=== PATIENT | male | born 1965 | race Two or more races ===

== ENCOUNTER 2016-09-05 07:19 | Day surgery (SDC) | payer OTHER ==
[2016-09-05] MEDS ORDERED: PROPOFOL INJ 200 MG/20 ML VIAL IV ONE (07:27)
[2016-09-05 09:24] VITALS: BP 99/74
--- NOTE | 2016-09-05 13:37 | Operative Report ---
Operative Report DATE OF SURGERY: 09/05/16 Operative Report: The risks, benefits and alternatives of the procedure are explained to the patient in detail and informed consent is obtained patient is taken back to the endoscopy suite and placed in left lateral decubital and time out is called Propofol sedation is provided A rectal exam is done which did not reveal any masses, tears of fissures An Olympus videoscope is inserted and guided all the way to the cecum the cecum is identified by the usual anatomical landmarks of the ileocecal valve and appendiceal orifice, the prep is good, photodocumentation is provide the scope is then sequentially pulled back via the various segments of colon including the ascending colon, transverse colon, descending colon, sigmoid and rectum Retroflexion is done PREOPERATIVE DIAGNOSIS: colorectal cancer screening POSTOPERATIVE DIAGNOSIS: 1. mild left sided punctate areas of inflammation that is consistent with previous NSAID use. 2. Sessile descending colon polyp, ablated in situ, attempted snare polypectomy. 3.diverticulosis. 4.Internal hemorrhoids OPERATION: Colonoscopy with snare polypectomy. colonoscopy with biopsy SURGEON: TACHO NGUYEN ANESTHESIA: LMAC TISSUE REMOVED OR ALTERED: biopsy specimen obtained COMPLICATIONS: none ESTIMATED BLOOD LOSS: none INTRAOPERATIVE FINDINGS: no masses, polyps or AVM's are noted. no obstruction masses are noted. PROCEDURE: patient tolerated his procedure well no post procedure complications patient is discharged in good condition discharge diet: regular discharge date: 09/05/16 discharge activity: regular 5 year surveillance colonoscopy will wait on biopsy patient has a 2-3 week follow up patient to call if there are any other questions or concerns. he may go to the ED if needed
== END 2016-09-05 09:19 | disposition home or self-care (01) ==
LOC: END 07:19
PROVIDERS: ATTEND Internal Medicine Gastroenterology
PROC: 3E0H8GC Introduction of Other Therapeutic Substance into Lower GI, Via Natural or Artificial Opening Endoscopic (ICD-10-PCS; principal; 2016-09-05 08:30)
PROC: 0DBN8ZX Excision of Sigmoid Colon, Via Natural or Artificial Opening Endoscopic, Diagnostic (ICD-10-PCS; 2016-09-05 08:30)
PROC: 0DBM8ZX Excision of Descending Colon, Via Natural or Artificial Opening Endoscopic, Diagnostic (ICD-10-PCS; 2016-09-05 08:30)
DX: Z12.11 Encounter for screening for malignant neoplasm of colon (principal); D12.4 Benign neoplasm of descending colon; K52.9 Noninfective gastroenteritis and colitis, unspecified; K57.30 Diverticulosis of large intestine without perforation or abscess without bleeding; K64.8 Other hemorrhoids; G47.30 Sleep apnea, unspecified; Z79.899 Other long term (current) drug therapy; Z87.442 Personal history of urinary calculi
CPT/HCPCS: 45380; 45385; 45381; 88305 ×2; J2704; 810

== ENCOUNTER 2018-03-22 05:23 | Day surgery (SDC) | payer OTHER ==
[2018-03-15 09:27] LABS: HEMATOCRIT 44.4 % (37.9-51.0); HEMOGLOBIN 15.4 g/dL (13.5-17.0); MEAN CORPUSCULAR HGB CONC 34.7 g/dL (32.0-36.0); MEAN CORPUSCULAR VOLUME 89 fl (80-97); PLATELET COUNT 389 10^3/uL (150-450); RED BLOOD COUNT 4.98 10^6/uL (4.35-5.55); RED CELL DISTRIBUTION WIDTH 13.2 % (11.5-14.0); WHITE BLOOD COUNT 8.2 10^3/uL (4.0-10.5)
[~2018-03-22 05:23] MED LIST: ACETAMINOPHEN 325 MG TABLET PO PRN; CEFAZOLIN 2 GM/D5W RTU 2 GM/50 ML RTUPB IV PRN; LACTATED RINGERS 1000 ML IV PRN; LIDOCAINE 0.5% INJ-PF (5 MG/ML) 50 ML SDV SUBCUT PRN
[2018-03-22] MEDS ORDERED: CEFAZOLIN 2 GM/D5W RTU 2 GM/50 ML RTUPB IV ONE (05:46)
[2018-03-22] MEDS ORDERED: BUPIVACAINE HCL 0.25 % INJ/PF (2.5 MG/1 ML) 30 ML VIAL ONE (06:39)
[2018-03-22] MEDS ORDERED: FENTANYL CITRATE INJ/PF 100 MCG/2 ML AMPUL ONE ×2 (06:44→07:22)
[2018-03-22] MEDS ORDERED: HYDROMORPHONE HCL INJ/PF 2 MG/ML AMPULE ONE (06:44)
[2018-03-22] MEDS ORDERED: MIDAZOLAM 2 MG/2 ML INJ ONE (06:45)
[2018-03-22] MEDS ORDERED: ACETAMINOPHEN 1,000 MG/100 ML RTUPB IV ONE (06:45)
[2018-03-22] MEDS ORDERED: PROPOFOL INJ 200 MG/20 ML VIAL IV ONE (06:45)
[2018-03-22] MEDS ORDERED: DEXMEDETOMIDINE INJ 80 MCG/20 ML VIAL IV ONE (07:20)
[2018-03-22] MEDS ORDERED: MEPERIDINE HCL/PF INJ 25 MG/1 ML DISP.SYRIN IV PRN (08:33)
[2018-03-22] MEDS ORDERED: PROMETHAZINE HCL INJ 25 MG/1 ML VIAL IV PRN (08:33)
[2018-03-22] MEDS ORDERED: DIPHENHYDRAMINE HCL 50 MG/ML VIAL IV PRN (08:33)
[2018-03-22] MEDS ORDERED: FENTANYL CITRATE INJ/PF 100 MCG/2 ML AMPUL IV PRN ×2 (08:33)
[2018-03-22] MEDS ORDERED: SUGAMMADEX SODIUM 200 MG/2 ML SDV IV ONE (08:39)
[2018-03-22] MEDS: KETOROLAC TROMETHAMINE INJ/PF 30 MG/1 ML SDV ONE ×2 (10:50→10:55)
[2018-03-22] MEDS: FENTANYL CITRATE INJ/PF 100 MCG/2 ML AMPUL ONE ×2 (10:52→11:00)
--- NOTE | 2018-03-22 11:19 | Discharge Summary ---
Discharge Summary (SDC) - Discharge Final Diagnosis: Bilateral inguinal hernias, symptomatic Date of Surgery: 03/22/18 Discharge Date: 03/22/18 Condition: Stable Treatment or Instructions: Discharge home. Diet as tolerated. Activity: No lifting greater than 10 pounds x 6 weeks. Follow-up with me in 7-10 days. [place] 10/325 mg p.o. every 6 hours as needed for pain. Okay to shower starting on Monday. No tub baths times 2 weeks. Referrals: CHANEL CUELLAR PA-C [Primary Care Provider] - Discharge Diet: As Tolerated Respiratory Treatments at Home: Deep Breathing/Coughing, Incentive Spirometer Discharge Activity: No Lifting Over 10 Pounds Home Care Assistance: None Needed Report the Following to Your Physician Immediately: Shortness of Breath, Nausea, Vomiting, Increase in Pain, Fever over 101 Degrees, Unusual Bleeding, Redness, Swelling, Warmth
--- NOTE | 2018-03-22 11:27 | Operative Report ---
Nonrecallable Operative Report DATE OF SURGERY: 03/22/18 PREOPERATIVE DIAGNOSIS: Bilateral inguinal hernias. POSTOPERATIVE DIAGNOSIS: Bilateral inguinal hernias. OPERATION: Robot-assisted laparoscopic bilateral inguinal hernia repair with mesh. SURGEON: LANDON KING ANESTHESIA: GA TISSUE REMOVED OR ALTERED: None COMPLICATIONS: None apparent ESTIMATED BLOOD LOSS: Minimal PROCEDURE: Drains/implants: Right and left large 3 DMax inguinal hernia mesh. Procedure in detail: After informed consent was obtained, the patient was brought into the operating room and laid in the supine position. The area of the abdomen was prepped and draped in a normal sterile fashion. An incision was created within the bounds of a previous scar in the supraumbilical position. Dissection was carried down through the subcutaneous tissue using sharp and blunt dissection. The linea alba fascia was incised sharply the abdomen was entered sharply. The balloon trocar was inserted, and pneumoperitoneum was achieved. Next, 2 8 mm trochars were placed in the right and left lateral abdominal wall under direct laparoscopic visualization. The robot was then brought over the patient and docked appropriately. The dissection was begun in the right groin. An incision in the peritoneum was created 2-3 cm superior to the large indirect inguinal hernia defect. Dissection was carried out in a preperitoneal plane using sharp dissection, blunt dissection, and electrocautery. The hernia sac was freed from the cord structures. This was done with great care, so as not to injure the cord structures. The mesh was then placed into the preperitoneal space. A large right-sided 3 DMax inguinal hernia mesh was chosen to adequately cover the defect. The mesh was situated over the defect and was sutured to the abdominal wall using 2-0 Vicryl suture medially and superiorly. Once this was completed, the mesh was found to lie in good place. The peritoneum was then closed using 2-0 V lock suture in simple running fashion. Attention was then turned to the left groin. In similar fashion, the peritoneum was scored 2-3 cm superior to the left inguinal hernia defect. A preperitoneal dissection was then undertaken using sharp dissection, blunt dissection, and electrocautery. The hernia sac was dissected free of the cord structures, taking great care so as not to injure the cord structures. Once this was completed, a left-sided 3 DMax inguinal hernia mesh was placed into the preperitoneal space. It was situated over the defect, and sutured in place using 2-0 Vicryl suture medially and superiorly. Once this was completed, the peritoneum was closed using 2-0 V lock suture in simple running fashion. Once this was completed, the repairs were inspected. They were found to be in good order. The robot was then undocked, the trochars were removed, and attention was turned to closure of the supraumbilical incision. The supraumbilical fascia appeared thin and attenuated. Secondary to this #1 Ethibond suture was used in [id number] fashion to close the defect. After this was completed, the overlying skin was closed using 4-0 Vicryl Rapide suture in subcuticular fashion. All sponge, instrument, and needle counts were correct x2. Condition: Stable.
[2018-03-22] MEDS ORDERED: HYDROCODONE/ACETAMINOPHEN 10-325 MG TABLET ONE (11:53)
[2018-03-22 13:07] VITALS: BP 111/74
[2018-03-22] MEDS ORDERED: LIDOCAINE 2% INJ-PF (20 MG/ML) 2 ML AMPUL ONE (13:42)
[2018-03-22] MEDS ORDERED: SUCCINYLCHOLINE CHLORIDE INJ 200 MG/10 ML VIAL ONE (13:42)
[2018-03-22] MEDS ORDERED: DEXAMETHASONE SOD PHOSPHATE INJ 4 MG/1 ML VIAL ONE (13:42)
[2018-03-22] MEDS ORDERED: ROCURONIUM BROMIDE INJ 50 MG/5 ML VIAL IV ONE (13:42)
[2018-03-22] MEDS ORDERED: ONDANSETRON HCL INJ/PF 4 MG/2 ML SDV ONE (13:42)
== END 2018-03-22 13:35 | disposition home or self-care (01) ==
LOC: OROUT 05:23
PROVIDERS: ATTEND Surgery
DX: K40.20 Bilateral inguinal hernia, without obstruction or gangrene, not specified as recurrent (principal); G47.33 Obstructive sleep apnea (adult) (pediatric); E66.9 Obesity, unspecified; Z68.41 Body mass index [BMI] 40.0-44.9, adult; Z79.899 Other long term (current) drug therapy; F43.10 Post-traumatic stress disorder, unspecified; G47.30 Sleep apnea, unspecified; Z87.442 Personal history of urinary calculi; Z91.040 Latex allergy status
CPT/HCPCS: 49650; S2900; 36415; 840; 85027; C1781; J0131; J0330; J0690; J1100; J1170; J1885; J2250; J2405; J2704; J3010; J3490

== ENCOUNTER 2018-03-23 15:17 | Inpatient (IN) | payer OTHER ==
[~2018-03-23 15:17] MED LIST changes: -ACETAMINOPHEN 325 MG TABLET PO PRN; -CEFAZOLIN 2 GM/D5W RTU 2 GM/50 ML RTUPB IV PRN; +GLYCOPYRROLATE 1 MG/5 ML SYRINGE ONE; -LACTATED RINGERS 1000 ML IV PRN; -LIDOCAINE 0.5% INJ-PF (5 MG/ML) 50 ML SDV SUBCUT PRN; +NEOSTIGMINE METHYLSULFATE 10 MG/10 ML VIAL ONE; +SUCCINYLCHOLINE CHLORIDE INJ 200 MG/10 ML VIAL ONE
[2018-03-23] MEDS ORDERED: MORPHINE SULFATE 10 MG/ML INJ IV ONE (15:37)
[2018-03-23] MEDS ORDERED: NORMAL SALINE 1000 ML 1,000 ML IV ONE ×2 (15:37→19:18)
[2018-03-23] MEDS ORDERED: ONDANSETRON HCL INJ/PF 4 MG/2 ML SDV IV ONE (15:37)
--- NOTE | 2018-03-23 15:39 | ER Document Report ---
ED Medical Screen (RME) - General Chief Complaint: Post Surgical Pain Stated Complaint: POST SURGERY ISSUE Time Seen by Provider: 03/23/18 15:33 Notes: 52-year-old male patient had a laparoscopic bilateral inguinal hernia repair done yesterday. When he woke up at 8:00 this morning he had severe pain to his lower abdomen and felt quite bloated. About 30 minutes ago he started having dry heaves and increase in his pain due to the vomiting. I have greeted and performed a rapid initial assessment of this patient. A comprehensive ED assessment and evaluation of the patient, analysis of test results and completion of the medical decision making process will be conducted by additional ED providers. TRAVEL OUTSIDE OF THE [place] IN LAST 30 DAYS: No - Related Data Allergies/Adverse Reactions: latex Allergy (Verified 09/05/16 07:32) "I break out" Past Medical History - Social History Frequency of alcohol use: Occasional Drug Abuse: None - Past Medical History Cardiac Medical History: Denies: Hx Coronary Artery Disease, Hx Heart Attack, Hx Hypertension Pulmonary Medical History: Denies: Hx Asthma, Hx Bronchitis, Hx COPD, Hx Pneumonia Neurological Medical History: Denies: Hx Cerebrovascular Accident, Hx Seizures Renal/ Medical History: Denies: Hx Peritoneal Dialysis Musculoskeltal Medical History: Denies Hx Arthritis - Immunizations Hx Diphtheria, Pertussis, Tetanus Vaccination: Yes History of Influenza Vaccine for 01/2017 - 06/2017 Season: No Physical Exam - Vital signs Vitals: Pulse Resp BP Pulse Ox 97 48 H 140/98 H 96 03/23/18 15:24 03/23/18 15:24 03/23/18 15:24 03/23/18 15:24 Course - Vital Signs Vital signs: Temp Pulse Resp BP Pulse Ox 97 48 H 140/98 H 96 03/23/18 15:24 03/23/18 15:24 03/23/18 15:24 03/23/18 15:24 Doctor's Discharge - Discharge Referrals: CHANEL CUELLAR PA-C [Primary Care Provider] - Follow up as needed
[2018-03-23 16:25] LABS: ABSOLUTE BASOPHILS # (AUTO) 0.1 10^3/uL (0.0-0.2); ABSOLUTE LYMPHOCYTES (AUTO) 1.7 10^3/uL (0.5-4.7); ABSOLUTE MONOCYTES (AUTO) 1.3 10^3/uL (0.1-1.4); ABSOLUTE NEUT (AUTO) 15.7 10^3/uL (1.7-8.2); BASOPHILS % (AUTO) 0.3 % (0-2); HEMATOCRIT 46.2 % (37.9-51.0); LYMPHOCYTES % (AUTO) 8.9 % (13-45); MEAN CORPUSCULAR HEMOGLOBIN 30.7 pg (27.0-33.4); MEAN CORPUSCULAR HGB CONC 34.6 g/dL (32.0-36.0); MEAN CORPUSCULAR VOLUME 89 fl (80-97); PLATELET COUNT 475 10^3/uL (150-450); RED CELL DISTRIBUTION WIDTH 13.2 % (11.5-14.0); SEGMENTED NEUTROPHILS % (AUTO) 83.8 % (42-78); TOTAL CELLS COUNTED % (AUTO) 100 %; WHITE BLOOD COUNT 18.8 10^3/uL (4.0-10.5)
[2018-03-23 16:31] LABS: ALANINE AMINOTRANSFERASE 48 U/L (21-72); ALBUMIN 4.8 g/dL (3.5-5.0); ALKALINE PHOSPHATASE 75 U/L (38-126); ANION GAP 14 (5-19); ASPARTATE AMINO TRANSFERASE 62 U/L (17-59); BILIRUBIN,DIRECT 0.5 mg/dL (0.0-0.4); BLOOD UREA NITROGEN 18 mg/dL (7-20); CALCIUM 10.1 mg/dL (8.4-10.2); CARBON DIOXIDE 27 mmol/L (22-30); CHLORIDE 97 mmol/L (98-107); GLUCOSE 184 mg/dL (75-110); POTASSIUM 4.6 mmol/L (3.6-5.0); SODIUM 138.1 mmol/L (137-145); TOTAL PROTEIN 7.5 g/dL (6.3-8.2)
[2018-03-23] MEDS ORDERED: FENTANYL CITRATE INJ/PF 100 MCG/2 ML AMPUL IV ONE (17:09)
--- NOTE | 2018-03-23 17:10 | ER Document Report ---
ED General - General Chief Complaint: Post Surgical Pain Stated Complaint: POST SURGERY ISSUE Time Seen by Provider: 03/23/18 15:33 Notes: 52-year-old male to the emergency department chief complaint of abdominal pain and bloating as well as vomiting. States he has had 4 episodes of passing gas since being released yesterday from his bilateral inguinal hernia repair. Also had a umbilical hernia repair at that time. Patient states that he was fine yesterday but today the pain on the left side is severe. Nothing is making it better. Has pain medication and took it but not getting better. Feels like he needs to go to the bathroom but cannot. Pain is progressively worse. states that he is also very cold and he is normally quite hot. TRAVEL OUTSIDE OF THE [place] IN LAST 30 DAYS: No - HPI Onset: This morning Onset/Duration: Gradual, Worse Quality of pain: Sharp, Throbbing Severity: Severe Pain Level: 5 Associated symptoms: Nausea, Vomiting Exacerbated by: Movement Relieved by: Denies Similar symptoms previously: No - Related Data Allergies/Adverse Reactions: latex Allergy (Verified 09/05/16 07:32) "I break out" Past Medical History - General Information source: Patient - Social History Smoking Status: Never Smoker Frequency of alcohol use: Occasional Drug Abuse: None Lives with: Spouse/Significant other Family History: Reviewed & Not Pertinent Patient has suicidal ideation: No Patient has homicidal ideation: No - Past Medical History Cardiac Medical History: Denies: Hx Coronary Artery Disease, Hx Heart Attack, Hx Hypertension Pulmonary Medical History: Denies: Hx Asthma, Hx Bronchitis, Hx COPD, Hx Pneumonia Neurological Medical History: Denies: Hx Cerebrovascular Accident, Hx Seizures Renal/ Medical History: Denies: Hx Peritoneal Dialysis Musculoskeletal Medical History: Denies Hx Arthritis - Immunizations Hx Diphtheria, Pertussis, Tetanus Vaccination: Yes Review of Systems - Review of Systems Notes: Constitutional: denies: Chills, Diaphoresis, Fever, Malaise, Weakness EENT: denies: Eye discharge, Blurred vision, Tearing, Double vision, Nose congestion, Nose discharge, Throat swelling, Mouth pain Cardiovascular: denies: Palpitations, Heart racing, Orthopnea, Dyspnea, Chest pain Respiratory: denies: Cough, Hurts to breathe, Wheezing, Shortness of breath Gastrointestinal: Complaining of the following: Abdominal pain, abdominal distention, nausea and vomiting. Genitourinary: denies: Burning, Dysuria, Discharge, Frequency, Flank pain, Hematuria Musculoskeletal: denies: Joint pain, Joint swelling, Muscle pain, Muscle stiffness, back pain Hematologic/Lymphatic: denies: Anemia, Easy bleeding, Easy bruising, Blood clots Neurological/Psychological: denies: Confusion, Dementia, Depression, Loss of consciousness Skin: No lesions, no masses, no skin breakdown, no abscesses Physical Exam - Vital signs Vitals: Pulse Resp BP Pulse Ox 97 48 H 140/98 H 96 03/23/18 15:24 03/23/18 15:24 03/23/18 15:24 03/23/18 15:24 Interpretation: Tachycardic - General General appearance: Appears well, Alert, Other - Uncomfortable appearing - HEENT Head: Normocephalic, Atraumatic Eyes: Normal Pupils: PERRL - Respiratory Respiratory status: No respiratory distress Chest status: Nontender Breath sounds: Normal Chest palpation: Normal - Cardiovascular Rhythm: Tachycardia Heart sounds: Normal auscultation Murmur: No - Abdominal Inspection: Normal Distension: Distended Bowel sounds: Hypoactive Tenderness: Tender, Other - Surgical incision sites are clean dry and intact. No signs of infection. There is some surrounding periumbilical bruising consistent with surgery. Organomegaly: No organomegaly - Back Back: Normal, Nontender - Extremities General upper extremity: Normal inspection, Nontender, Normal color, Normal ROM, Normal temperature General lower extremity: Normal inspection, Nontender, Normal color, Normal ROM, Normal temperature, Normal weight bearing. No: Hilary's sign - Neurological Neuro grossly intact: Yes Cognition: Normal Orientation: AAOx4 [place] Coma Scale Eye Opening: Spontaneous [place] Coma Scale Verbal: Oriented [place] Coma Scale Motor: Obeys Commands [place] Coma Scale Total: 15 Speech: Normal Motor strength normal: LUE, RUE, LLE, RLE Sensory: Normal - Psychological Associated symptoms: Normal affect, Normal mood - Skin Skin Temperature: Warm Skin Moisture: Dry Skin Color: Normal Course - Re-evaluation Re-evalutation: 03/23/18 17:26 Laboratory 03/23/18 03/23/18 03/23/18 15:55 15:55 17:00 WBC 18.8 H RBC 5.20 Hgb 16.0 Hct 46.2 MCV 89 MCH 30.7 MCHC 34.6 RDW 13.2 Plt Count 475 H Seg Neutrophils % 83.8 H Lymphocytes % 8.9 L Monocytes % 7.0 Eosinophils % 0.0 Basophils % 0.3 Absolute Neutrophils 15.7 H Absolute Lymphocytes 1.7 Absolute Monocytes 1.3 Absolute Eosinophils 0.0 Absolute Basophils 0.1 Sodium 138.1 Potassium 4.6 Chloride 97 L Carbon Dioxide 27 Anion Gap 14 BUN 18 Creatinine 0.84 Est GFR ( Amer) > 60 Est GFR (Non-Af Amer) > 60 Glucose 184 H Calcium 10.1 Total Bilirubin 1.0 Direct Bilirubin 0.5 H Neonat Total Bilirubin Not Reportable Neonat Direct Bilirubin Not Reportable Neonat Indirect Bili Not Reportable AST 62 H ALT 48 Alkaline Phosphatase 75 Total Protein 7.5 Albumin 4.8 Urine Color YELLOW Urine Appearance SLIGHTLY-CLOUDY Urine pH 5.0 Ur Specific [place] 1.021 Urine Protein NEGATIVE Urine Glucose (UA) NEGATIVE Urine Ketones 80 H Urine Blood NEGATIVE Urine Nitrite NEGATIVE Urine Bilirubin NEGATIVE Urine Urobilinogen NEGATIVE Ur Leukocyte Esterase SMALL H Urine WBC (Auto) 16 Urine RBC (Auto) 1 Urine Bacteria (Auto) TRACE U Non-Squamous Epis Auto 2 Urine Mucus (Auto) FEW Urine Ascorbic Acid NEGATIVE 03/23/18 18:[address] Morrissey with general surgery. He is covering for Dr. Mello. He recommends getting a CT scan at this time. Patient has incidental findings on x-ray consistent with possible pneumonia but he does not have a fever or short of breath and most of his symptoms are in the left lower quadrant. CT scan will better eliminate this concern as well. 03/23/18 19:18 No obvious signs of obstruction or free air on x-ray. Patient has had 7.2 mg of morphine, 100 mcg of fentanyl as well as 0.5 mg of Dilaudid and is still requesting something else for the pain. I have explained to him that narcotics are obviously not working. I am going to give him a small dose of Toradol and some more fluids at this time. Patient is becoming quite frustrated that he is in pain. I have expressed my concerns with him that I understand he is in pain and there is nothing else that I feel comfortable doing at this time. I am awaiting the CT scan results and surgical consult. 03/23/18 20:34 Dr. Morrissey has seen the patient. He wants to take the patient to the OR at this time. - Vital Signs Vital signs: Temp Pulse Resp BP Pulse Ox 97 48 H 140/98 H 96 03/23/18 15:24 03/23/18 15:24 03/23/18 15:24 03/23/18 15:24 - Laboratory Result Diagrams: 03/23/18 15:55 03/23/18 15:55 Laboratory results interpreted by me: 03/23/18 03/23/18 03/23/18 15:55 15:55 17:00 WBC 18.8 H Plt Count 475 H Seg Neutrophils % 83.8 H Lymphocytes % 8.9 L Absolute Neutrophils 15.7 H Chloride 97 L Glucose 184 H Direct Bilirubin 0.5 H AST 62 H Urine Ketones 80 H Ur Leukocyte Esterase SMALL H Discharge - Discharge Clinical Impression: Dehiscence of internal surgical incision Qualifiers: Encounter type: initial encounter Qualified Code(s): T81.32XA - Disruption of internal operation (surgical) wound, not elsewhere classified, initial encounter Condition: Good Disposition: ADMITTED OBSERVATION Admitting Provider: Surgicalist - [place] [facility] Admitted: OR
[2018-03-23 17:13] LABS: APPEARANCE,URINE SLIGHTLY-CLOUDY; BILIRUBIN,URINE NEGATIVE (NEGATIVE); COLOR,URINE YELLOW; GLUCOSE, URINE NEGATIVE (NEGATIVE); KETONES,URINE 80 mg/dL (NEGATIVE); LEUKOCYTE ESTERASE,URINE SMALL (NEGATIVE); NITRITE,URINE NEGATIVE (NEGATIVE); PROTEIN,URINE NEGATIVE (NEGATIVE); URINE SPECIFIC GRAVITY 1.021; UROBILINOGEN,URINE NEGATIVE mg/dL (<2.0)
--- NOTE | 2018-03-23 17:46 | RADIOLOGY REPORT (SQ) ---
EXAM DESCRIPTION: ACUTE ABDOMEN SERIES COMPLETED DATE/TIME: 03/23/2018 5:36 pm REASON FOR STUDY: abd pain COMPARISON: None. NUMBER OF VIEWS: Three views. TECHNIQUE: Frontal chest, supine abdomen and /decubitus abdomen radiographic images acquired. LIMITATIONS: None. FINDINGS: CHEST: Ill-defined opacification in the left base. A portion of the left hemidiaphragm is indistinct. FREE AIR: None. No abnormal gas collections. BOWEL GAS PATTERN: Nonobstructive pattern. No dilated loops or air fluid levels. CALCIFICATIONS: No suspicious calcifications. HARDWARE: None in the abdomen. SOFT TISSUES: No gross mass or suggestion of organomegaly. BONES: No acute fracture. No worrisome bone lesions. OTHER: No other significant finding. IMPRESSION: Cannot exclude a limited left lower lobe pneumonia. No significant finding is seen in t he abdomen. TECHNICAL DOCUMENTATION: JOB ID: [id number] [employer]- All Rights Reserved Reading location - IP/workstation name: [email or web address]
[2018-03-23] MEDS ORDERED: HYDROMORPHONE HCL INJ/PF 2 MG/ML AMPULE IV ONE (18:50)
[2018-03-23] MEDS ORDERED: KETOROLAC TROMETHAMINE INJ/PF 30 MG/1 ML SDV IV ONE (19:18)
--- NOTE | 2018-03-23 20:28 | PDOC H&P ---
History of Present Illness Admission Date/PCP: CHANEL CUELLAR PA-C Patient complains of: Abdominal pain nausea vomiting History of Present Illness: CRUZ QUIROGA JR is a 52 year old male Who is brought to the emergency department by ground rescue complaining of acute onset abdominal pain approximately 230 today after taking pain medication, then vomiting. He felt a pop in his umbilicus, and developed excruciating pain, with distortion of the umbilical tissue according to he and his . He is brought to the emergency department was evaluated, found to have diffuse abdominal tenderness given IV occasion, found to have a leukocytosis of 18,000. Dr. Morrissey was consulted from the emergency department while he was operating on another patient, and recommendations were made to obtain a CT scan of the abdomen and pelvis. Dr. Morrissey evaluated the patient at approximately 8 PM and at bedside felt that the patient had popped his supraumbilical fascial suture closure. Bedside ultrasonography was performed by Dr. Morrissey and the findings were consistent with incarcerated tissue likely omentum in the subcutaneous tissue. Recommendations were made for exploration, and abdominal wall closure. Past Medical History Past Medical History: Obesity Cardiac Medical History: Denies: Coronary Artery Disease, Myocardial Infarction, Hypertension Pulmonary Medical History: Denies: Asthma, Bronchitis, Chronic Obstructive Pulmonary Disease (COPD), Pneumonia Neurological Medical History: Denies: Seizures Musculoskeltal Medical History: Denies: Arthritis Hematology: Denies: Anemia Past Surgical History Past Surgical History: Previous abdominal wall closure, bilateral robotic hernia repair, Dr. Mello, April 01, 2018 Social History Information Source: Patient Lives with: Spouse/Significant other Smoking Status: Never Smoker Hx Recreational Drug Use: No Hx Prescription Drug Abuse: No Family History Family History: Reviewed & Not Pertinent Parental Family History Reviewed: Yes Children Family History Reviewed: Yes Sibling(s) Family History Reviewed.: Yes Medication/Allergy Home Medications: Amitriptyline HCl 25 mg PO QHS 09/01/16 Sertraline HCl [Zoloft 50 mg Tablet] 50 mg PO QHS 09/01/16 Zolpidem Tartrate [Ambien 5 mg Tablet] 10 mg PO HSP PRN 09/01/16 Butalbital/Acetaminophen [Butalbital-Acetaminophn 50-300] 1 cap PO DAILY PRN 03/15/18 Ropinirole HCl 1 tab PO Q8PM PRN 03/15/18 Allergies/Adverse Reactions: latex Allergy (Verified 09/05/16 07:32) "I break out" Review of Systems Constitutional: ABSENT: chills, fever(s), headache(s), weight gain, weight loss Eyes: ABSENT: visual disturbances Ears: ABSENT: hearing changes Gastrointestinal: PRESENT: as per HPI Genitourinary: ABSENT: dysuria, hematuria Musculoskeletal: ABSENT: joint swelling Integumentary: ABSENT: rash, wounds Physical Exam Vital Signs: Temp Pulse Resp BP Pulse Ox 97 48 H 140/98 H 96 03/23/18 15:24 03/23/18 15:24 03/23/18 15:24 03/23/18 15:24 Intake & Output 03/22/18 03/23/18 03/24/18 06:59 06:59 06:59 Intake Total 1000 Balance 1000 Weight 127.006 kg General appearance: PRESENT: other - Moderate distress Head exam: PRESENT: normocephalic Eye exam: PRESENT: EOMI Mouth exam: PRESENT: dry mucosa Neck exam: PRESENT: full ROM Respiratory exam: PRESENT: clear to auscultation anya Cardiovascular exam: PRESENT: RRR Pulses: PRESENT: normal carotid pulses, normal radial pulses GI/Abdominal exam: PRESENT: other - Bruising around the umbilicus; supraumbilical incision with Steri-Strips in place; the umbilicus appears distended. It is tender. Rectal exam: PRESENT: deferred Extremities exam: PRESENT: full ROM Musculoskeletal exam: PRESENT: full ROM Neurological exam: PRESENT: altered, awake, oriented to person, oriented to place Psychiatric exam: PRESENT: anxious, appropriate affect Results Laboratory Results: 03/23/18 15:55 03/23/18 15:55 03/23/18 03/23/18 03/23/18 15:55 15:55 17:00 WBC 18.8 H RBC 5.20 Hgb 16.0 Hct 46.2 MCV 89 MCH 30.7 MCHC 34.6 RDW 13.2 Plt Count 475 H Seg Neutrophils % 83.8 H Lymphocytes % 8.9 L Monocytes % 7.0 Eosinophils % 0.0 Basophils % 0.3 Absolute Neutrophils 15.7 H Absolute Lymphocytes 1.7 Absolute Monocytes 1.3 Absolute Eosinophils 0.0 Absolute Basophils 0.1 Sodium 138.1 Potassium 4.6 Chloride 97 L Carbon Dioxide 27 Anion Gap 14 BUN 18 Creatinine 0.84 Est GFR ( Amer) > 60 Est GFR (Non-Af Amer) > 60 Glucose 184 H Calcium 10.1 Total Bilirubin 1.0 AST 62 H ALT 48 Alkaline Phosphatase 75 Total Protein 7.5 Albumin 4.8 Urine Color YELLOW Urine Appearance SLIGHTLY-CLOUDY Urine pH 5.0 Ur Specific [place] 1.021 Urine Protein NEGATIVE Urine Glucose (UA) NEGATIVE Urine Ketones 80 H Urine Blood NEGATIVE Urine Nitrite NEGATIVE Ur Leukocyte Esterase SMALL H Urine WBC (Auto) 16 Urine RBC (Auto) 1 Impressions: Acute Abdomen Series 03/23/18 17:09 IMPRESSION: Cannot exclude a limited left lower lobe pneumonia. No significant finding is seen in the abdomen. Assessment & Plan - Diagnosis (1) Supraumbilical hernia Is this a current diagnosis for this admission?: Yes Plan: Impression: Patient is 1 day status post bilateral robotically repaired inguinal hernias by Dr. Mello with closure of supraumbilical access site, now w/ acute abdominal pain, umbilical tendernes and tissue distortion, leukocytosis, and findings on ultrasonography suggesting incarcerated tissue in the subcutaneous space consistent with dehiscence of fascial closure Recommendations: 1. Admit, n.p.o., IV fluids, patient back to the operating room for excision of hernia, and closure of the defect. This was explained to the patient and his . 2. Patient had thin attenuated fascia at time of closure yesterday. He may require mesh repair. (2) Status post bilateral inguinal hernia repair Is this a current diagnosis for this admission?: Yes (3) Leukocytosis Is this a current diagnosis for this admission?: Yes (4) Obesity Is this a current diagnosis for this admission?: Yes - Time Time Spent: 30 to 50 Minutes Critical Time spent with patient: 15-24 minutes Medications reviewed and adjusted accordingly: Yes Anticipated discharge: Home - Inpatient Certification Based on my medical assessment, after consideration of the patient's comorbidities, presenting symptoms, or acuity I expect that the services needed warrant INPATIENT care.: Yes I certify that my determination is in accordance with my understanding of Medicare's requirements for reasonable and necessary INPATIENT services [42 CFR 412.3e].: Yes Medical Necessity: Need For IV Fluids, Need for Pain Control, Need for IV Antibiotics, Need for Surgery
[2018-03-23] MEDS ORDERED: NORMAL SALINE 1000 ML 1,000 ML IV PRN (20:30)
[2018-03-23] MEDS ORDERED: MIDAZOLAM 2 MG/2 ML INJ ONE (21:05)
[2018-03-23] MEDS ORDERED: FENTANYL CITRATE INJ/PF 100 MCG/2 ML AMPUL ONE (21:05)
[2018-03-23] MEDS ORDERED: ONDANSETRON HCL INJ/PF 4 MG/2 ML SDV ONE (21:05)
[2018-03-23] MEDS ORDERED: DEXAMETHASONE SOD PHOSPHATE INJ 4 MG/1 ML VIAL ONE (21:05)
[2018-03-23] MEDS ORDERED: PROPOFOL INJ 200 MG/20 ML VIAL IV ONE (21:06)
[2018-03-23] MEDS ORDERED: MORPHINE SULFATE 10 MG/ML INJ ONE (21:06)
[2018-03-23] MEDS ORDERED: BUPIVACAINE INJ/PF LIPOSOME/PF 266 MG/20 ML SDV ONE (21:09)
[2018-03-23] MEDS ORDERED: BUPIVACAINE HCL 0.25 % INJ/PF (2.5 MG/1 ML) 30 ML VIAL ONE (21:09)
[2018-03-23] MEDS ORDERED: DEXMEDETOMIDINE INJ 80 MCG/20 ML VIAL IV ONE (21:25)
[2018-03-23] MEDS ORDERED: CEFAZOLIN INJ 1 GM VIAL ONE (21:40)
[2018-03-23] MEDS ORDERED: DIPHENHYDRAMINE HCL 50 MG/ML VIAL IV PRN (22:11)
[2018-03-23] MEDS ORDERED: MEPERIDINE HCL/PF INJ 25 MG/1 ML DISP.SYRIN IV PRN (22:11)
[2018-03-23] MEDS ORDERED: FENTANYL CITRATE INJ/PF 100 MCG/2 ML AMPUL IV PRN ×3 (22:11)
[2018-03-23] MEDS ORDERED: PROMETHAZINE HCL INJ 25 MG/1 ML VIAL IV PRN ×2 (22:11)
[2018-03-23] MEDS ORDERED: MORPHINE SULFATE 10 MG/ML INJ IV PRN (22:11)
[2018-03-23] MEDS ORDERED: ONDANSETRON HCL INJ/PF 4 MG/2 ML SDV IV PRN (22:52)
--- NOTE | 2018-03-23 23:04 | Operative Report ---
Operative Report DATE OF SURGERY: 03/23/18 PREOPERATIVE DIAGNOSIS: 1. Dehiscence of supraumbilical fascial closure status post robotic lateral inguinal herniorrhaphies. 2. Obesity. 3. Atelectasis POSTOPERATIVE DIAGNOSIS: Same with small bowel obstruction secondary to multiple loops of incarcerated small bowel in the supraumbilical postop incision OPERATION: 1. Open decompression of supraumbilical incarcerated small bowel in supraumbilical operative incision. 2. Closure of abdominal wall dehiscence with 11 x [address] hernia patch. In the intraperitoneal position. 3. Drainage of subcutaneous space SURGEON: CAYETANO HDZ ANESTHESIA: GA TISSUE REMOVED OR ALTERED: None COMPLICATIONS: None ESTIMATED BLOOD LOSS: 15 cc INTRAOPERATIVE FINDINGS: See below PROCEDURE: Patient was taken from the emergency department to the main operating room where general anesthesia was induced. A Delvalle catheter was inserted, 14 Khmer which drained a minimal amount of concentrated urine. Nasogastric tube was inserted and approximately 1 L of bile cloudy aspirate was removed. The abdomen was exposed Steri-Strips removed, prepped and draped in sterile fashion Surgical plan surgical timeout were conducted. The previous curvilinear supraumbilical incision was reopened with a #10 blade. Immediately under the skin were multiple loops of incarcerated small bowel. In fact 10 blade lanced 1 loop of small bowel creating a 2 cm serosal tear. This was longitudinally oriented. It was immediately repaired with a running 3-0 Vicryl suture without compromise to the lumen. The incision was now extended laterally on both ends by approximately a centimeter and a half. This enabled us to get a hand-held retractor into the subcutaneous tissue and manually decompress the incarcerated loops of small bowel. The findings were significant for at least 3 out of 4 to 5 vertically oriented Ethibond closure sutures fractured from the previous operation. These suture remnants were removed in their entirety. We now inspected the loops of small bowel reduced and they appeared viable however several loops were very distended. The findings were significant for an incarcerated stop hernia causing an obstruction. We washed out the subcutaneous tissue, and now proceeded with abdominal wall closure. Because of morbid obesity, distended abdomen, and poor fascial tissue, this was going to be an at risk for closure. Nonetheless I felt a mesh repair was indicated. We brought onto the field a 11 x [address] hernia patch from [place]. We oriented it horizontally and now placed it into the intraperitoneal position with the absorbable side towards the viscera and the fibrous side towards the peritoneal surface. We placed 8 1 PDS sutures in the [id number] and 10 positions. The stitches were placed through the subcutaneous tissue through the fascia, grasping a good swath of mesh, and then brought back up through the fascia and into the subcutaneous tissue. Once all 8 stitches were placed, we carefully pulled up on the sutures bringing the mesh up to the anterior abdominal wall in the intraperitoneal position taking care to ensure the mesh was splayed out smoothly with no loops of bowel caught between the mesh and the anterior abdominal wall. This was somewhat challenging again due to the somewhat small aperture in the fascia which we were working through which was approximately 6-8 cm. Once the mesh was pulled up nicely and smoothly, we secured all 8 kn. I now closed the residual fascia transversely over the mass with a running #1 PDS suture. This effectively covered the mesh in its entirety. A large Ambrocio drain was placed through the inferior skin flap trimmed to appropriate length and secured to the skin with 2-0 Prolene suture and placed in the subcutaneous space. The skin closed with nicolas, 20 cc of full-strength Exparel placed in the subcutaneous tissue and a honeycomb dressing applied. Patient tolerated procedure well; abdominal binder was placed and the patient was extubated and taken recovery room in stable condition.
[2018-03-23] MEDS ORDERED: CEFAZOLIN 1 GM/D5W RTU 1 GM/50 ML RTUPB IV ONE (23:15)
[2018-03-24] MEDS: ACETAMINOPHEN INJ/PF 1000 MG/100 ML SDV IV SCH ×3 (01:04→22:42)
[2018-03-24] MEDS: KETOROLAC TROMETHAMINE INJ/PF 30 MG/1 ML SDV IV PRN ×3 (01:23→18:49)
[2018-03-24 05:26] LABS: ABSOLUTE LYMPHOCYTES (AUTO) 0.8 10^3/uL (0.5-4.7); ABSOLUTE MONOCYTES (AUTO) 0.5 10^3/uL (0.1-1.4); ABSOLUTE NEUT (AUTO) 12.4 10^3/uL (1.7-8.2); BASOPHILS % (AUTO) 0.3 % (0-2); EOSINOPHILS % (AUTO) 0.1 % (0-6); HEMATOCRIT 39.4 % (37.9-51.0); MEAN CORPUSCULAR HEMOGLOBIN 30.4 pg (27.0-33.4); MEAN CORPUSCULAR HGB CONC 33.6 g/dL (32.0-36.0); MEAN CORPUSCULAR VOLUME 90 fl (80-97); MONOCYTES % (AUTO) 3.7 % (3-13); PLATELET COUNT 341 10^3/uL (150-450); RED BLOOD COUNT 4.36 10^6/uL (4.35-5.55); RED CELL DISTRIBUTION WIDTH 13.4 % (11.5-14.0); SEGMENTED NEUTROPHILS % (AUTO) 89.9 % (42-78); TOTAL CELLS COUNTED % (AUTO) 100 %; WHITE BLOOD COUNT 13.7 10^3/uL (4.0-10.5)
[2018-03-24 05:34] LABS: HEMOGLOBIN 13.2 g/dL (13.5-17.0)
[2018-03-24 05:44] LABS: ANION GAP 7 (5-19); BLOOD UREA NITROGEN 15 mg/dL (7-20); CALCIUM 8.6 mg/dL (8.4-10.2); CARBON DIOXIDE 29 mmol/L (22-30); CHLORIDE 101 mmol/L (98-107); GLUCOSE 140 mg/dL (75-110); POTASSIUM 4.6 mmol/L (3.6-5.0); SODIUM 136.5 mmol/L (137-145)
[2018-03-24] MEDS: CEFAZOLIN 1 GM/D5W RTU 1 GM/50 ML RTUPB IV SCH ×3 (05:55→22:47)
[2018-03-24] MEDS: FAMOTIDINE INJ/PF 20 MG/2 ML SDV IV SCH ×2 (11:37→21:47)
--- NOTE | 2018-03-24 12:35 | PDOC PROGRESS REPORT ---
Subjective Reason For Visit: DEHISCENCE OF SUPRA-UMBILICAL FASCIAL CLOSURE Physical Exam Vital Signs: Temp Pulse Resp BP Pulse Ox 98.1 F 67 18 122/74 97 03/24/18 11:55 03/24/18 11:55 03/24/18 11:55 03/24/18 11:55 03/24/18 11:55 Intake & Output 03/23/18 03/24/18 03/25/18 06:59 06:59 06:59 Intake Total 2850 Output Total 555 Balance 2295 Weight 126.6 kg Results Laboratory Results: 03/24/18 04:30 03/24/18 04:30 03/23/18 03/23/18 03/23/18 15:55 15:55 17:00 WBC 18.8 H RBC 5.20 Hgb 16.0 Hct 46.2 MCV 89 MCH 30.7 MCHC 34.6 RDW 13.2 Plt Count 475 H Seg Neutrophils % 83.8 H Lymphocytes % 8.9 L Monocytes % 7.0 Eosinophils % 0.0 Basophils % 0.3 Absolute Neutrophils 15.7 H Absolute Lymphocytes 1.7 Absolute Monocytes 1.3 Absolute Eosinophils 0.0 Absolute Basophils 0.1 Sodium 138.1 Potassium 4.6 Chloride 97 L Carbon Dioxide 27 Anion Gap 14 BUN 18 Creatinine 0.84 Est GFR ( Amer) > 60 Est GFR (Non-Af Amer) > 60 Glucose 184 H Calcium 10.1 Total Bilirubin 1.0 AST 62 H ALT 48 Alkaline Phosphatase 75 Total Protein 7.5 Albumin 4.8 Urine Color YELLOW Urine Appearance SLIGHTLY-CLOUDY Urine pH 5.0 Ur Specific [place] 1.021 Urine Protein NEGATIVE Urine Glucose (UA) NEGATIVE Urine Ketones 80 H Urine Blood NEGATIVE Urine Nitrite NEGATIVE Ur Leukocyte Esterase SMALL H Urine WBC (Auto) 16 Urine RBC (Auto) 1 03/24/18 03/24/18 04:30 04:30 WBC 13.7 H RBC 4.36 Hgb 13.2 L D Hct 39.4 MCV 90 MCH 30.4 MCHC 33.6 RDW 13.4 Plt Count 341 Seg Neutrophils % 89.9 H Lymphocytes % 6.0 L Monocytes % 3.7 Eosinophils % 0.1 Basophils % 0.3 Absolute Neutrophils 12.4 H Absolute Lymphocytes 0.8 Absolute Monocytes 0.5 Absolute Eosinophils 0.0 Absolute Basophils 0.0 Sodium 136.5 L Potassium 4.6 Chloride 101 Carbon Dioxide 29 Anion Gap 7 BUN 15 Creatinine 0.69 Est GFR ( Amer) > 60 Est GFR (Non-Af Amer) > 60 Glucose 140 H Calcium 8.6 Total Bilirubin AST ALT Alkaline Phosphatase Total Protein Albumin Urine Color Urine Appearance Urine pH Ur Specific [place] Urine Protein Urine Glucose (UA) Urine Ketones Urine Blood Urine Nitrite Ur Leukocyte Esterase Urine WBC (Auto) Urine RBC (Auto) Impressions: Acute Abdomen Series 03/23/18 17:09 IMPRESSION: Cannot exclude a limited left lower lobe pneumonia. No significant finding is seen in the abdomen. Assessment & Plan - Diagnosis (1) Dehiscence of internal surgical incision Qualifiers: Encounter type: subsequent encounter Qualified Code(s): T81.32XD - Disruption of internal operation (surgical) wound, not elsewhere classified, subsequent encounter Is this a current diagnosis for this admission?: Yes - Plan Summary Plan Summary: There is a 52-year-old male status post exploratory laparotomy for an acute abdominal wall hernia at his periumbilical surgical site. The patient is status post acute hernia repair with placement of prosthetic mesh. The patient is doing well today. He is ambulating and passing flatus. I will discontinue his NG tube and Delvalle catheter. I will start the patient on liquids. If the patient progresses well, he may be fit for discharge in the next 24-48 hours. Aggressive pulmonary toilet.
[2018-03-24] MEDS: ACETAMINOPHEN 1,000 MG/100 ML RTUPB IV SCH ×2 (15:23→21:47)
[2018-03-25] MEDS: ACETAMINOPHEN 1,000 MG/100 ML RTUPB IV SCH ×4 (02:00→21:52)
[2018-03-25] MEDS: CEFAZOLIN 1 GM/D5W RTU 1 GM/50 ML RTUPB IV SCH ×3 (05:18→21:53)
[2018-03-25] MEDS: KETOROLAC TROMETHAMINE INJ/PF 30 MG/1 ML SDV IV PRN ×3 (05:43→21:53)
--- NOTE | 2018-03-25 09:50 | PDOC PROGRESS REPORT ---
Subjective Reason For Visit: DEHISCENCE OF SUPRA-UMBILICAL FASCIAL CLOSURE Physical Exam Vital Signs: Temp Pulse Resp BP Pulse Ox 97.8 F 85 15 136/81 H 96 03/25/18 07:52 03/25/18 07:52 03/25/18 07:52 03/25/18 07:52 03/25/18 07:52 Intake & Output 03/24/18 03/25/18 03/26/18 06:59 06:59 06:59 Intake Total 2850 1740 Output Total 585 45 Balance 2265 1695 Weight 126.6 kg 127.1 kg Results Laboratory Results: 03/24/18 04:30 03/24/18 04:30 Impressions: Acute Abdomen Series 03/23/18 17:09 IMPRESSION: Cannot exclude a limited left lower lobe pneumonia. No significant finding is seen in the abdomen. Assessment & Plan - Diagnosis (1) Dehiscence of internal surgical incision Qualifiers: Encounter type: subsequent encounter Qualified Code(s): T81.32XD - Disr uption of internal operation (surgical) wound, not elsewhere classified, subsequent encounter Is this a current diagnosis for this admission?: Yes - Plan Summary Plan Summary: There is a 52-year-old male status post exploratory laparotomy for an acute abdominal wall hernia at his periumbilical surgical site. He is status post acute hernia repair with placement of prosthetic mesh. The patient is doing well today. He is ambulating, passing flatus, and had 3 BM's today. He is tolerating liquids. He had a small amount of nausea last night, but denies vomiting. He is not nauseated at present. If the patient continues to progresses well, he may be fit for discharge in the next 24 hours. Aggressive pulmonary toilet.
[2018-03-25] MEDS: FAMOTIDINE INJ/PF 20 MG/2 ML SDV IV SCH ×2 (09:52→21:53)
[2018-03-25] MEDS ORDERED: MORPHINE SULFATE 10 MG/ML INJ IV PRN (21:38)
[2018-03-26] MEDS: CEFAZOLIN 1 GM/D5W RTU 1 GM/50 ML RTUPB IV SCH ×3 (05:22→21:29)
[2018-03-26 06:45] LABS: ABSOLUTE EOSINOPHILS # (AUTO) 0.1 10^3/uL (0.0-0.6); ABSOLUTE LYMPHOCYTES (AUTO) 1.3 10^3/uL (0.5-4.7); ABSOLUTE MONOCYTES (AUTO) 0.8 10^3/uL (0.1-1.4); ABSOLUTE NEUT (AUTO) 4.4 10^3/uL (1.7-8.2); BASOPHILS % (AUTO) 0.4 % (0-2); EOSINOPHILS % (AUTO) 1.6 % (0-6); HEMATOCRIT 39.4 % (37.9-51.0); HEMOGLOBIN 13.5 g/dL (13.5-17.0); LYMPHOCYTES % (AUTO) 19.7 % (13-45); MEAN CORPUSCULAR HEMOGLOBIN 30.6 pg (27.0-33.4); MEAN CORPUSCULAR HGB CONC 34.4 g/dL (32.0-36.0); MEAN CORPUSCULAR VOLUME 89 fl (80-97); MONOCYTES % (AUTO) 12.3 % (3-13); PLATELET COUNT 339 10^3/uL (150-450); RED BLOOD COUNT 4.42 10^6/uL (4.35-5.55); RED CELL DISTRIBUTION WIDTH 13.3 % (11.5-14.0); TOTAL CELLS COUNTED % (AUTO) 100 %; WHITE BLOOD COUNT 6.7 10^3/uL (4.0-10.5)
[2018-03-26 07:06] LABS: ALANINE AMINOTRANSFERASE 32 U/L (21-72); ALBUMIN 3.1 g/dL (3.5-5.0); ALKALINE PHOSPHATASE 54 U/L (38-126); ANION GAP 10 (5-19); ASPARTATE AMINO TRANSFERASE 29 U/L (17-59); BILIRUBIN,DIRECT 0.4 mg/dL (0.0-0.4); BILIRUBIN,TOTAL 1.2 mg/dL (0.2-1.3); BLOOD UREA NITROGEN 12 mg/dL (7-20); CALCIUM 8.3 mg/dL (8.4-10.2); CARBON DIOXIDE 26 mmol/L (22-30); CHLORIDE 102 mmol/L (98-107); GLUCOSE 93 mg/dL (75-110); POTASSIUM 3.9 mmol/L (3.6-5.0); SODIUM 137.8 mmol/L (137-145); TOTAL PROTEIN 5.4 g/dL (6.3-8.2)
--- NOTE | 2018-03-26 08:08 | PDOC PROGRESS REPORT ---
Subjective Progress Note for:: 03/26/18 Subjective:: post op laparotomy for abdominal wound dehiscence. Reason For Visit: DEHISCENCE OF SUPRA-UMBILICAL FASCIAL CLOSURE Physical Exam Vital Signs: Temp Pulse Resp BP Pulse Ox 99.1 F 76 17 123/79 97 03/26/18 07:31 03/26/18 07:31 03/26/18 07:31 03/26/18 07:31 03/26/18 07:31 Intake & Output 03/25/18 03/26/18 03/27/18 06:59 06:59 06:59 Intake Total 1740 1400 Output Total 45 5 Balance 1695 1395 Weight 127.1 kg 127.1 kg General appearance: PRESENT: no acute distress Respiratory exam: PRESENT: clear to auscultation anya GI/Abdominal exam: PRESENT: normal bowel sounds - had a number of bm's liquid pt only on clears, wants to dry soft diet, soft, other - wound dressed, dry jhonny with min op Results Laboratory Results: 03/26/18 05:24 03/26/18 05:24 03/26/18 03/26/18 05:24 05:24 WBC 6.7 RBC 4.42 Hgb 13.5 Hct 39.4 MCV 89 MCH 30.6 MCHC 34.4 RDW 13.3 Plt Count 339 Seg Neutrophils % 66.0 Lymphocytes % 19.7 Monocytes % 12.3 Eosinophils % 1.6 Basophils % 0.4 Absolute Neutrophils 4.4 Absolute Lymphocytes 1.3 Absolute Monocytes 0.8 Absolute Eosinophils 0.1 Absolute Basophils 0.0 Sodium 137.8 Potassium 3.9 Chloride 102 Carbon Dioxide 26 Anion Gap 10 BUN 12 Creatinine 0.77 Est GFR ( Amer) > 60 Est GFR (Non-Af Amer) > 60 Glucose 93 Calcium 8.3 L Total Bilirubin 1.2 AST 29 ALT 32 Alkaline Phosphatase 54 Total Protein 5.4 L Albumin 3.1 L 03/23/18 17:00 Clean Catch Midstream Urine Culture - Final NO GROWTH 2 DAYS Impressions: Acute Abdomen Series 03/23/18 17:09 IMPRESSION: Cannot exclude a limited left lower lobe pneumonia. No significant finding is seen in the abdomen. Assessment & Plan - Diagnosis (1) Dehiscence of internal surgical incision Qualifiers: Encounter type: subsequent encounter Qualified Code(s): T81.32XD - Disruption of internal operation (surgical) wound, not elsewhere classified, subsequent encounter Is this a current diagnosis for this admission?: Yes (3) Status post bilateral inguinal hernia repair Is this a current diagnosis for this admission?: Yes - Time Time Spent with patient: 15-24 minutes - Plan Summary Plan Summary: will start soft diet today await results of cxr and abd xray possibly home in am
[2018-03-26] MEDS: FAMOTIDINE INJ/PF 20 MG/2 ML SDV IV SCH ×2 (09:59→21:30)
[2018-03-26] MEDS: SERTRALINE HCL 50 MG TABLET PO SCH (09:59)
[2018-03-26] MEDS ORDERED: (PENDING PHARMACY ID) (Ropinirole Hcl [Requip] 0.5 MG) PO SCH (10:00)
--- NOTE | 2018-03-26 11:55 | RADIOLOGY REPORT (SQ) ---
EXAM DESCRIPTION: CHEST SINGLE VIEW COMPLETED DATE/TIME: 03/26/2018 11:15 am REASON FOR STUDY: cough COMPARISON: AP chest 03/23/2018 EXAM PARAMETERS: NUMBER OF VIEWS: One view. TECHNIQUE: Single frontal radiographic view of the chest acquired. RADIATION DOSE: NA LIMITATIONS: None. FINDINGS: LUNGS AND PLEURA: Minimal left basilar atelectasis. Lungs are otherwise well inflated and clear. No pleural effusion or pneumothorax. MEDIASTINUM AND HILAR STRUCTURES: No masses. Contour normal. HEART AND VASCULAR STRUCTURES: Heart normal in size. Normal vasculature. BONES: No acute findings. HARDWARE: None in the chest. OTHER: No other significant finding. IMPRESSION: Minimal left basilar atelectasis TECHNICAL DOCUMENTATION: JOB ID: [id number] [employer]- All Rights Reserved Reading location - IP/workstation name: [email or web address]
--- NOTE | 2018-03-26 12:02 | RADIOLOGY REPORT (SQ) ---
EXAM DESCRIPTION: KUB/ABDOMEN (SINGLE VIEW) COMPLETED DATE/TIME: 03/26/2018 11:15 am REASON FOR STUDY: distention COMPARISON: Chest films same date Abdominal films 03/23/2018 NUMBER OF VIEWS: One view. TECHNIQUE: Supine radiographic image of the abdomen acquired. LIMITATIONS: None. FINDINGS: BOWEL GAS PATTERN: Dilated small bowel loops in the upper abdomen are present, worrisome f or an ileus. Few air bubbles in nondistended ascending and descending colon. CALCIFICATIONS: No suspicious calcifications. SOFT TISSUES: No gross mass or suggestion of organomegaly. HARDWARE: Right upper quadrant Siva-Koo drain. Periumbilical surgical nicolas. BONES: No acute fracture. No worrisome bone lesions. OTHER: No other significant finding. IMPRESSION: Air filled small bowel loops, question ileus Results called to Dr. Alexandre TECHNICAL DOCUMENTATION: JOB ID: [id number] [employer]- All Rights Reserved Reading location - IP/workstation name: [email or web address]
[2018-03-26] MEDS: ROPINIROLE HCL 0.25 MG TABLET PO SCH ×2 (14:11→21:30)
[2018-03-26] MEDS: AMITRIPTYLINE HCL 25 MG TABLET PO SCH (21:30)
[2018-03-26] MEDS: DIPHENHYDRAMINE HCL 50 MG CAPSULE PO SCH (21:33)
[2018-03-26] MEDS: FLUTICASONE NASAL SPRAY 50 MCG/SPRY 120 SPRAY/16 GM NASL SCH (21:42)
[2018-03-27] MEDS: CEFAZOLIN 1 GM/D5W RTU 1 GM/50 ML RTUPB IV SCH ×3 (05:23→22:14)
[2018-03-27] MEDS: ROPINIROLE HCL 0.25 MG TABLET PO SCH ×3 (09:53→22:15)
[2018-03-27] MEDS: FLUTICASONE NASAL SPRAY 50 MCG/SPRY 120 SPRAY/16 GM NASL SCH ×2 (10:02→22:13)
[2018-03-27] MEDS: FAMOTIDINE INJ/PF 20 MG/2 ML SDV IV SCH ×2 (10:02→22:13)
[2018-03-27] MEDS: SERTRALINE HCL 50 MG TABLET PO SCH (10:02)
--- NOTE | 2018-03-27 14:07 | PDOC PROGRESS REPORT ---
Subjective Progress Note for:: 03/27/18 - post op repair of abd dehissence Subjective:: pt feels a little less bloated today slept better sitting up eating lunch has been passing flatus and small amts of stool Reason For Visit: DEHISCENCE OF SUPRA-UMBILICAL FASCIAL CLOSURE Physical Exam Vital Signs: Temp Pulse Resp BP Pulse Ox 98.3 F 77 16 138/98 H 97 03/27/18 11:19 03/27/18 11:19 03/27/18 11:19 03/27/18 11:19 03/27/18 11:19 Intake & Output 03/26/18 03/27/18 03/28/18 06:59 06:59 06:59 Intake Total 1400 1364 Output Total 5 15 Balance 1395 1364 -15 Weight 127.1 kg 127.1 kg GI/Abdominal exam: PRESENT: normal bowel sounds, soft - Abdominal wound still covered with a occlusive dressing the Siva-Koo drain in the right lower quadrant with only serosanguineous fluid in small amounts Results Laboratory Results: 03/26/18 05:24 03/26/18 05:24 Impressions: Acute Abdomen Series 03/23/18 17:09 IMPRESSION: Cannot exclude a limited left lower lobe pneumonia. No significant finding is seen in the abdomen. Chest X-Ray 03/26/18 05:00 IMPRESSION: Minimal left basilar atelectasis KUB X-Ray 03/26/18 05:00 IMPRESSION: Air filled small bowel loops, question ileus Results called to Dr. Alexandre Status: Image reviewed by me - KUB done yesterday was reviewed by me does show ileus pattern Assessment & Plan - Diagnosis (1) Dehiscence of internal surgical incision Qualifiers: Encounter type: subsequent encounter Qualified Code(s): T81.32XD - Disruption of internal operation (surgical) wound, not elsewhere classified, subsequent encounter Is this a current diagnosis for this admission?: Yes (3) Status post bilateral inguinal hernia repair Is this a current diagnosis for this admission?: Yes - Plan Summary Plan Summary: Patient has been eating solid food for the last 2 days still continues to pass small amounts of stool mixed with diarrhea and has been passing amounts of flatus starting this morning about 11:00 AM. Plan is to remove the occlusive dressing replace the Steri-Strips. Still feels a bit uncomfortable going home today and will remain one more day probable discharge tomorrow
[2018-03-27] MEDS: ACETAMINOPHEN 325 MG TABLET PO PRN ×2 (16:44→22:51)
[2018-03-27] MEDS: DIPHENHYDRAMINE HCL 50 MG CAPSULE PO SCH (22:13)
[2018-03-27] MEDS: AMITRIPTYLINE HCL 25 MG TABLET PO SCH (22:14)
[2018-03-28] MEDS: ROPINIROLE HCL 0.25 MG TABLET PO SCH (05:27)
[2018-03-28] MEDS: CEFAZOLIN 1 GM/D5W RTU 1 GM/50 ML RTUPB IV SCH (05:27)
--- NOTE | 2018-03-28 08:27 | PDOC DISCHARGE SUMMARY ---
General - Admit/Disc Date/PCP Admission Date/Primary Care Provider: 03/23/18 20:37 CHANEL CUELLAR PA-C Discharge Date: 03/28/18 - Discharge Diagnosis (1) Dehiscence of internal surgical incision Is this a current diagnosis for this admission?: Yes - Additional Information Resuscitation Status: Full Code Discharge Diet: As Tolerated Discharge Activity: No Lifting Over 10 Pounds Home Medications: Amitriptyline HCl [Elavil 25 mg Tablet] 25 mg PO QHS 03/23/18 Ropinirole HCl [Requip] 0.5 mg PO TID 03/23/18 Sertraline HCl [Zoloft 50 mg Tablet] 50 mg PO DAILY 03/23/18 History of Present Illness History of Present Illness: CRUZ QUIROGA JR is a 52 year old male recently status post bilateral laparoscopic robot-assisted inguinal hernia repair with mesh. The patient felt a pop at his supraumbilical port site. He experienced an acute abdominal wall hernia with entrapment of small bowel. The patient presented to the hospital for evaluation. He was found to have an acute abdominal wall hernia with bowel obstruction. The patient was taken to the operating room for definitive surgical care. Hospital Course Hospital Course: The patient was taken to the operating room where reduction of his hernia was performed with placement of prosthetic mesh. The patient was then taken to the floor in stable condition. The patient did very well. The patient slowly regained bowel function, and began tolerating a diet. By 03/28/2018 the patient was ambulating, tolerating a diet, his pain was controlled, and he had been deemed fit for discharge. Physical Exam Vital Signs: Temp Pulse Resp BP Pulse Ox 98.3 F 74 17 130/87 H 94 03/28/18 07:22 03/28/18 07:22 03/28/18 07:22 03/28/18 07:22 03/28/18 07:22 Intake & Output 03/27/18 03/28/18 03/29/18 06:59 06:59 06:59 Intake Total 1364 1666 Output Total 17 Balance 1364 1649 Weight 127.1 kg 129.2 kg Results Laboratory Results: 03/26/18 05:24 03/26/18 05:24 Impressions: Acute Abdomen Series 03/23/18 17:09 IMPRESSION: Cannot exclude a limited left lower lobe pneumonia. No significant finding is seen in the abdomen. Chest X-Ray 03/26/18 05:00 IMPRESSION: Minimal left basilar atelectasis KUB X-Ray 03/26/18 05:00 IMPRESSION: Air filled small bowel loops, question ileus Results called to Dr. Alexandre Qualifiers - * PATIENT BEING DISCHARGED WITH ANY OF THE FOLLOWING DIAGNOSIS: No Plan Discharge Plan: Discharge home. Diet as tolerated. Activity: No lifting greater than 10 pounds x 6 weeks. Follow-up with me at [facility] at previously arranged a follow-up appointment. Okay to shower. No tub baths times 2 weeks. Wear abdominal binder at all times, unless showering. Time Spent: Less than 30 Minutes
[2018-03-28] MEDS: KETOROLAC TROMETHAMINE INJ/PF 30 MG/1 ML SDV IV PRN (09:06)
[2018-03-28] MEDS: FLUTICASONE NASAL SPRAY 50 MCG/SPRY 120 SPRAY/16 GM NASL SCH (09:38)
[2018-03-28] MEDS: SERTRALINE HCL 50 MG TABLET PO SCH (09:46)
[2018-03-28] MEDS: FAMOTIDINE INJ/PF 20 MG/2 ML SDV IV SCH (09:46)
[2018-03-28 11:13] VITALS: BP 131/76
== END 2018-03-28 12:10 | disposition home or self-care (01) | DRG 909 ==
LOC: ER 15:17 → OBSVTOIN 20:37 → EH 20:37 → 5 03-24 00:30
PROVIDERS: ADMIT Surgery; ATTEND Surgery
PROC: 0WQF0ZZ Repair Abdominal Wall, Open Approach (ICD-10-PCS; principal; 2018-03-23 21:30)
DX: T81.32XA Disruption of internal operation (surgical) wound, not elsewhere classified, initial encounter (principal); E66.9 Obesity, unspecified; Z98.890 Other specified postprocedural states; Z79.899 Other long term (current) drug therapy; Z91.040 Latex allergy status
CPT/HCPCS: 36415; 71045; 74018; 74022; 790; 80048; 80053; 81001; 85025; 87086; 94799; 96361; 96374; 96375; 99285; C9290; J0131; J0330; J0690; J1100; J1170; J1885; J2250; J2270; J2405; J2704; J3010; J3490; J7030; S0028

== ENCOUNTER → 2018-08-09 | Outpatient (CLI) | payer OTHER ==
--- NOTE | 2018-08-09 10:56 | RADIOLOGY REPORT (SQ) ---
EXAM DESCRIPTION: CT ORBIT/SELLA COMBO COMPLETED DATE/TIME: 08/09/2018 10:37 am REASON FOR STUDY: H66.002 ACUTE SUPPURATIVE OTITIS MEDIA WITHOUT SPONTANEOUS RUPTURE OF EAR D H66.00 2 ACUTE SUPPR OTITIS MEDIA W/O SPON RUPT EAR DRUM, LEF COMPARISON: None. TECHNIQUE: Noncontrasted thin section axial images through the temporal bones and skull base were ob tained and reviewed at bone windows and bone algorithm with coronal and sagittal reconstructions. All CT scanners at this facility use dose modulation, iterative reconstruction, and/or weight based d osing when appropriate to reduce radiation dose to as low as reasonably achievable (ALARA). [facility]: Dose Right [facility]: CareDose [facility]: Dose Right [facility]: Teradose 4D [facility]: Digitel RADIATION DOSE: 28 mGy . LIMITATIONS: None. FINDINGS: RIGHT SIDE: EXTERNAL AUDITORY CANAL: Widely patent. TYMPANIC MEMBRANE: No masses, thickening or medial retraction. OSSICLES AND MIDDLE EAR CAVITY: Normal ossicles. No middle ear masses or fluid. INNER EAR STRUCTURES: Normal vestibule and cochlea. Normal aqueducts. INTERNAL AUDITORY CANAL: Normal bony canal without narrowing or widening. No calcified or ossified m asses. TEMPOROMANDIBULAR JOINT: Normal. MASTOID AIR CELLS: Clear. LEFT SIDE: EXTERNAL AUDITORY CANAL: Widely patent. TYMPANIC MEMBRANE: No masses, thickening or medial retraction. OSSICLES AND MIDDLE EAR CAVITY: Normal ossicles. No middle ear masses or fluid. INNER EAR STRUCTURES: Normal vestibule and cochlea. Normal aqueducts. INTERNAL AUDITORY CANAL: Normal bony canal without narrowing or widening. No calcified or ossified m asses. TEMPOROMANDIBULAR JOINT: Normal. MASTOID AIR CELLS: Trace fluid inferior left mastoid air cells. This report was discussed with Cherelle Alvarado CENTRAL SKULL BASE: Normal foramina. No lytic or blastic lesions. INFERIOR BRAIN: Limited view. No acute findings. LIMITED VIEW OF PARANASAL SINUSES IN THE FIELD OF VIEW: Normal. IMPRESSION: UNREMARKABLE NONCONTRASTED TEMPORAL BONE CT. TECHNICAL DOCUMENTATION: JOB ID: [id number] Quality ID # [id number]: Final reports with documentation of one or more dose reduction techniques (e.g., Au tomated exposure control, adjustment of the mA and/or kV according to patient size, use of iterative reconstruction technique) 2010 [employer]- All Rights Reserved Reading location - IP/workstation name: [email or web address]
== END ==
LOC: RAD 09:11
PROVIDERS: ATTEND Physician Assistant Medical
DX: H66.002 Acute suppurative otitis media without spontaneous rupture of ear drum, left ear (principal)
CPT/HCPCS: 70482; 82565